=== PATIENT | female | born 1995 | race African-American/Black ===

== ENCOUNTER 2020-01-29 06:46 | Emergency (ER) | payer OTHER ==
[~2020-01-29] VITALS: Ht 167.6 cm; Wt 108.9 kg
[2020-01-29 06:48] VITALS: BP 130/80
[2020-01-29] MEDS ORDERED: RISPERDAL2 MG PO (06:53)
[2020-01-29] MEDS ORDERED: VITAMIN D31250 MC1 PO (06:54)
[2020-01-29] MEDS ORDERED: NAPROSYN500 M1 PO (06:54)
[2020-01-29] MEDS ORDERED: FLEXERIL PO (06:54)
[2020-01-29] MEDS ORDERED: PENICILLIN VK500 M1 PO (07:34)
[2020-01-29] MEDS ORDERED: TYLENOL WITH CO1 TA1 PO (07:34)
== END 2020-01-29 07:55 | disposition home or self-care (01) ==
LOC: ER 06:46
DX: K04.7 Periapical abscess without sinus (principal); K02.9 Dental caries, unspecified; F17.210 Nicotine dependence, cigarettes, uncomplicated; Z79.899 Other long term (current) drug therapy; Z90.89 Acquired absence of other organs; Z88.8 Allergy status to other drugs, medicaments and biological substances

== ENCOUNTER 2020-03-10 16:19 | Emergency (ER) | payer OTHER ==
[~2020-03-10] VITALS: Ht 167.6 cm; Wt 112.0 kg
[~2020-03-10 16:19] MED LIST: FLEXERIL PO; NAPROSYN500 M1 PO; PENICILLIN VK500 M1 PO; RISPERDAL2 MG PO; TYLENOL WITH CO1 TA1 PO; VITAMIN D31250 MC1 PO
[2020-03-10 16:43] LABS: URINE BILIRUBIN NEGATIVE (Negative); URINE BLOOD NEGATIVE (Negative); URINE CLARITY CLEAR; URINE COLOR YELLOW; URINE GLUCOSE-RANDOM* NEGATIVE (Negative); URINE KETONES NEGATIVE (Negative); URINE NITRITE-REFLEX NEGATIVE (Negative); URINE PROTEIN (DIPSTICK) TRACE (Negative); URINE SPECIFIC GRAVITY >= 1.030 (1.005-1.035); URINE UROBILINOGEN 0.2 E.U./dl (0.2-1.0)
[2020-03-10 16:45] LABS: URINE LEUKOCYTES-REFLEX 1+ (Negative)
[2020-03-10 16:54] LABS: AMP/METHAMP Negative (Negative); BARBITURATES Negative (Negative); BENZODIAZEPINES Negative (Negative); COCAINE Negative (Negative); METHADONE Negative (Negative); OPIATES Negative (Negative); PCP Negative (Negative)
[2020-03-10 17:01] LABS: CASTS None Seen /LPF (None Seen); CRYSTALS None Seen /LPF (None Seen); SQUAMOUS 4-10 Moderate /LPF (0-3)
[2020-03-10 17:02] LABS: BACTERIA-REFLEX 1-9 Few /HPF (None Seen); URINE RBC None Seen /HPF (0-2)
[2020-03-10 17:26] LABS: HEMATOCRIT 38.5 % (37.0-47.0); HEMOGLOBIN 13.5 gm/dL (12.0-15.0); MCH 30.3 pg (26.0-34.0); MCV 86.6 fL (80.0-100.0); PLATELET COUNT 237 thou/uL (150-400); RBC 4.45 mil/uL (4.20-5.00); RDW 13.6 % (10.5-14.5)
[2020-03-10 17:39] LABS: ANION GAP 8 mmol/L (7-16); BUN 5 mg/dL (7-18); CALCIUM 9.3 mg/dL (8.5-10.1); CHLORIDE 102 mmol/L (98-107); CO2 27 mmol/L (21-32); CREATININE 0.9 mg/dL (0.6-1.0); GLUCOSE 90 mg/dL (74-106); POTASSIUM 3.7 mmol/L (3.5-5.1); SODIUM 137 mmol/L (136-145)
[2020-03-10 17:42] LABS: SALICYLATE 4.1 mg/dL (2.8-20.0)
[2020-03-10 17:43] LABS: ABSOLUTE NEUTROPHILS 4.6 thou/uL (1.4-8.2); ANISOCYTOSIS 1+; POLYCHROMASIA OCCASIONAL
[2020-03-10 17:48] LABS: ALBUMIN 4.1 g/dL (3.4-5.0); SGOT 29 U/L (15-37); SGPT 30 U/L (30-65); TOTAL BILIRUBIN 0.2 mg/dL (0.2-1.0); TROPONIN-I <0.06 ng/mL (<0.06)
[2020-03-10] MEDS ORDERED: FLAGYL500 M1 PO (21:43)
--- NOTE | 2020-03-11 08:24 | EKG ---
[facility] [place] [address] ELECTROCARDIOGRAM REPORT Name: YAZMIN RODRIGUEZ Room #: REG [facility]#: [id number] Admission: 03/10/20 Attend Phys: Discharge: Date of : [birth year] Report #: [id number] THIS REPORT FOR: cc: JUWAN - Briana family physician/PCP JUWAN - Briana family physician/PCP Evelio Beltrán MD [facility] THIS REPORT FOR: //name// [facility] ED Test Date: 2020-03-10 Test Time: 16:47:56 Pat Name: YAZMIN RODRIGUEZ Department: Room: Gender: Senior Contracts Manager: [facility] : 1995 Requested By: Lucrecia Sanchez Order Number: [id number] MD: Evelio Beltrán Measurements Intervals Tot[place] Rate: 82 P: 56 [place]: 147 QRS: 36 QRSD: 91 T: 32 QT: 376 QTc: 439 Interpretive Statements Sinus rhythm Normal tracing No previous ECG available for comparison Electronically Signed On 03-11-2020 8:24:45 CDT by Evelio Beltrán [email or web address] <ELECTRONICALLY SIGNED> By: Evelio Beltrán MD, [facility] 03/11/20 0824 46 46 Evelio Beltrán MD, [facility] /EPI
[2020-03-11 23:41] VITALS: BP 143/71
== END 2020-03-11 23:42 ==
LOC: ER 16:19
PROVIDERS: Physician Assistant
DX: O26.899 Other specified pregnancy related conditions, unspecified trimester (principal); A59.9 Trichomoniasis, unspecified; F23 Brief psychotic disorder; Z20.828 Contact with and (suspected) exposure to other viral communicable diseases; Z90.49 Acquired absence of other specified parts of digestive tract; Z91.048 Other nonmedicinal substance allergy status

== ENCOUNTER 2020-04-05 00:51 | Emergency (ER) | payer OTHER ==
[~2020-04-05] VITALS: Ht 167.6 cm; Wt 104.3 kg
[~2020-04-05 00:51] MED LIST changes: +FLAGYL500 M1 PO
[2020-04-05 00:54] VITALS: BP 160/83
[2020-04-05] MEDS ORDERED: ABILIFY10 MG PO (01:01)
[2020-04-05] MEDS ORDERED: FLEXERIL PO (02:30)
== END 2020-04-05 02:40 | disposition home or self-care (01) ==
LOC: ER 00:51
DX: F91.9 Conduct disorder, unspecified (principal); F31.9 Bipolar disorder, unspecified; F20.9 Schizophrenia, unspecified; Z79.899 Other long term (current) drug therapy; Z88.8 Allergy status to other drugs, medicaments and biological substances